=== PATIENT | male | born 1990 | race Caucasian/White ===

== ENCOUNTER → 2024-04-10 06:36 | Day surgery (SDC) | payer BC, SELFPAY | LOC: GI 06:36 | PROVIDERS: ATTENDING PHYSICIAN Internal Medicine Gastroenterology | DX: R13.10 Dysphagia, unspecified (principal); K22.2 Esophageal obstruction; K44.9 Diaphragmatic hernia without obstruction or gangrene; K31.7 Polyp of stomach and duodenum; K20.0 Eosinophilic esophagitis; K52.9 Noninfective gastroenteritis and colitis, unspecified | CPT/HCPCS: 43251; 88305 ==